=== PATIENT | female | born 1950 | race Caucasian/White ===

== ENCOUNTER 2019-05-06 12:14 | Inpatient (IN) | payer MEDICARE ==
--- NOTE | 2019-05-07 07:32 | Psychiatric Evaluation ---
DATE OF SERVICE: 05/06/2019 INITIAL PSYCHIATRIC EVALUATION AGE: 68. SEX: Female. PHYSICIAN: Dr. Jean-Baptiste. CHIEF COMPLAINT: Hallucinations and crying. HISTORY OF PRESENT ILLNESS: The patient is a 68-year-old female who was admitted to the hospital because of increased paranoia. The patient thinks that her kids are trying to poison her and the patient started to wander away from home and from the family. The patient was placed on hold by law enforcement for grave disability and also for dangers to self. The patient also has been having auditory hallucinations and has been confused and severely paranoid. Also according to the admission report, the patient has dementia, depression and schizophrenia. Chart and interview the patient. The patient is trying hysterically and sitting on the floor and did not answer any of my questions at this time because of her confusion and because of hallucinations. PAST PSYCHIATRIC HISTORY: The patient seems to have history of psychosis and depression and questionable dementia. PAST MEDICAL HISTORY: The patient has type 2 diabetes mellitus. SOCIAL HISTORY: The patient is and her on January of this year according to the admission report. The patient also has children, but it is not clear how many. The patient lives with her family. ALLERGIES: No known allergies. MENTAL STATUS EXAMINATION: The patient appears her stated age. Anxious. Tearful. Did not answer questions because continuously crying. Depressed mood. Unable to assess her thought processes or her suicidality or homicidality at this time because the patient was crying hysterically. Poor insight and judgment at this time because of her hallucinations. She also seems to be actively responding to stimuli. Unable to assess her orientation or memory at this time. ASSESSMENT: PRIMARY DIAGNOSIS: Schizoaffective disorder, depressed episode, severe, with psychotic features. MEDICAL DIAGNOSIS: Type 2 diabetes mellitus. Hypertension. TREATMENT PLAN: We will monitor the patient's behavior and condition closely. We will start individual as well as milieu psychotherapy. We will monitor psychotropic medications. We will start the patient on Abilify and we will follow up. ESTIMATED LENGTH OF STAY: 5-7 days. PATIENT'S STRENGTHS AND WEAKNESSES: The patient's strength is not clear at this time. Weaknesses is her ineffective coping and her psychosis. AFTER DISCHARGE PLAN: The patient will return to live with her family and outpatient treatment and followup, will continue as an outpatient. CRITERIA FOR DISCHARGE: The patient will not be psychotic or suicidal and will stabilize with psychotropic medications and will establish outpatient treatment plans. JOB# [id number]
--- NOTE | 2019-05-08 22:21 | History & Physical ---
ADMIT DATE: 05/08/2019 REASON FOR ADMISSION: Psychiatric disorder. HISTORY OF PRESENT ILLNESS: This is a 68-year-old female admitted to the Geropsych Unit at [facility] for evaluation of underlying psychiatric illnesses and dementia by Dr. Jean-Baptiste. Dr. Jean-Baptiste requested medical H and P on this patient. The patient, during my evaluation, seems confused. The patient's family was sitting beside the patient who helped in providing most of the history. The patient's daughter is, in fact, his insurance special agent. PAST MEDICAL HISTORY: Hypertension, dementia. PAST SURGICAL HISTORY: Gallbladder surgery in the past. FAMILY HISTORY: No significant family history. SOCIAL HISTORY: The patient was currently homeless. No reported alcohol, tobacco or drug use. CURRENT MEDICATIONS: Per medication reconciliation. ALLERGIES: ALLERGIC TO PENICILLIN. REVIEW OF SYSTEMS: No fever, no chills, no diarrhea, no vomiting, no abdominal pain, no chest pain or trouble breathing reported. PHYSICAL EXAMINATION: VITAL SIGNS: Temperature 97.6, pulse 77, respirations 18, blood pressure 167/84, 97% on room air. HEENT: Unremarkable. HEART: S1, S2 normal. LUNGS: Clear to auscultation. ABDOMEN: Soft, nontender. EXTREMITIES: No edema. NEUROLOGIC: The patient is confused. AVAILABLE LABORATORY DATA: None. ASSESSMENT: 1. Hypertension. 2. Dementia. 3. Psych disorder. PLAN: Psych management per psychiatrist. The patient was started on losartan. The patient's blood pressure seems so high, I will increase losartan to 50 twice daily. Monitor blood pressure, low-salt diet. The patient's psych management by psychiatrist. The patient is medically stable. The patient's condition and plan of care discussed with the daughter and nursing staff. JOB# [id number]
--- NOTE | 2019-05-09 12:37 | Progress Notes ---
DATE: 05/08/2019 PSYCHIATRIC PROGRESS NOTE DATE OF SERVICE: 05/08/2019 SUBJECTIVE: Chart was reviewed and the patient interviewed, also discussed the patient's condition with the staff and reviewed records and labs. The patient seems to be exhibiting manic behavior today and she is hyperverbal with pressured speech. The patient also has labile affect. The patient also today speaks Fijian, although not speaking any Fijian upon admission. She is still confused and she is still wandering and easily agitated. Her ADLs seemed to be slightly improved. She is still delusional and paranoid about her children and thinks that her children want to poison her. She has been living in streets because of that. Her judgment is still poor. Otherwise, the patient started to take Abilify with no side effects. ASSESSMENT: The patient is still agitated and is still showing poor self-care and considered to be gravely disabled. TREATMENT PLAN: Continue to monitor her behavior and her condition closely. Also, we will continue Abilify 15 mg every day and adjusting the dose and working on family issues and the relationships. [facility]# [id number]
--- NOTE | 2019-05-09 22:08 | Progress Notes ---
DATE: 05/09/2019 PSYCHIATRIC PROGRESS NOTE DATE OF SERVICE: 05/09/2019. Chart reviewed and the patient interviewed. Also discussed the patient's condition with the staff and reviewed the records and labs. The patient is still exhibiting pressured speech and affect is labile. The patient also is still confused and still wanders around the unit in a confused state and with episodes of agitation. She also is still paranoid about her children and continued to think that her children wanted to poison her. On the other hand, the patient continued to comply with taking her medications and no side effects of medications. ASSESSMENT: The patient is still psychotic and agitated and needs close monitoring. TREATMENT PLAN: Continue to monitor her behavior and condition closely. Also, continue adjusting psychotropic medications and work on behavioral modification. JOB# [id number]
--- NOTE | 2019-05-10 20:52 | Progress Notes ---
DATE: 05/10/2019 PSYCHIATRIC PROGRESS NOTE SUBJECTIVE: Chart reviewed and the patient interviewed. Also discussed the patient's condition with the staff, and reviewed records and labs. The patient continued to be delusional, and she thinks that she is and that medicine will hurt the baby. The patient also in spite of that is still taking the medications and she is compliant with taking her medications. Also during my interview, the patient was speaking Portuguese and at times was mixing her Portuguese with Greek, and also sometimes seemed to be with disorganized thoughts. The patient also is paranoid and fearful to stay in her room, and tries to stay out of the room all the time. She also still has thoughts that the children as well as the staff in the hospital are trying to poison her. On the other hand, the patient is not crying as much and sleeping slightly better. She still has disorganized thoughts with flight of ideas. ASSESSMENT: The patient is still psychotic. TREATMENT PLAN: We will continue Abilify 15 mg every day, but we will add Seroquel in a dose of 100 mg at bedtime. Also, we will continue monitoring her condition and her behavior closely, and we will continue to follow up. [facility]# [id number]
--- NOTE | 2019-05-18 20:34 | Progress Notes ---
DATE: SUBJECTIVE: Chart was reviewed and the patient interviewed. Also discussed the patient's condition with the staff and reviewed records and labs. The patient continued to be anxious and continued to be in restless. The patient also is suspicious and is paranoid. She also is restless and in irritable and angry mood. She also has mood swings. Otherwise, the patient continued to comply with taking her medications with no side effects of medications. The patient still has trouble sleeping at night, has difficulty sleeping all night. ASSESSMENT: The patient is still agitated and is still psychotic. TREATMENT PLAN: We will continue to monitor behavior and condition closely. Also, we will add trazodone in a dose of 50 mg at bedtime. Also, we will increase Seroquel to 150 mg at bedtime and continue to follow up. [facility]# [id number]
--- NOTE | 2019-05-18 20:34 | Progress Notes ---
DATE: 05/14/2019 Case was discussed with staff of the patient, reviewed records. This is a 68-year-old female who was admitted on 05/06/2019 because of increasing paranoia. She thinks that her kids are trying to poison her. The patient started to wander away from home and from family. The patient was placed on hold for grave disability. The patient with a history of psychosis, depression, questionable dementia. The patient continues to have poor insight, continues to be paranoid, unable to make safe plan for self-care. Sometimes she thinks she is and the medication will harm the baby. She has been compliant with the medication with no side effects. She is disorganized, unable to make safe plan for self-care. No side effects with the medication, no sedation, no nausea, no extrapyramidal symptoms. We will continue outpatient group therapy, milieu therapy, adjust medication as needed. JOB# [id number] [facility]
--- NOTE | 2019-05-18 20:34 | Progress Notes ---
DATE: 05/11/2019 SUBJECTIVE: Chart was reviewed and patient was interviewed. Also, discussed the patient's condition with the staff and reviewed records and labs. The patient is still delusional and confused, but slightly calmer. She still thinks that she is . She also is still suspicious and paranoid and still had disorganized thoughts. Otherwise, the patient has continued to take Abilify and Seroquel was added. At the same time, continue to work on her psychosis and agitation and we will continue to follow up closely. JOB# [id number]
--- NOTE | 2019-05-18 20:34 | Progress Notes ---
DATE: 05/13/2019 SUBJECTIVE: Chart was reviewed and the patient interviewed. Also discussed the patient's condition with the staff and reviewed records and labs. The patient continued to have disorganized thoughts and delusions of being . The patient also is still suspicious and is still paranoid. The patient also is still having episodes of being agitated in the middle of other patients for no apparent reason. Also, the patient has difficulty sleeping at night. Otherwise, the patient is compliant with taking her medications and cooperative with staff and able to follow directions in spite of her psychosis. ASSESSMENT: The patient is still psychotic and is still agitated. TREATMENT PLAN: We will continue to monitor her behavior and her condition closely. Also, we are cross titrating Seroquel and Abilify. We will increase Seroquel to 150 mg at bedtime. Also, we will decrease Abilify to 5 mg at bedtime and we will continue to monitor her behavior and her condition closely. Also, we will work on discharge plans and placement issue. JOB# [id number]
--- NOTE | 2019-05-18 20:34 | Progress Notes ---
DATE: SUBJECTIVE: Chart was reviewed and the patient interviewed. Also, discussed the patient's condition with the staff and reviewed records and labs. The patient is still confused and is still disoriented. The patient also is guarded. She also still seems to be preoccupied and delusional, although her affect seems to be slightly brighter. Otherwise, the patient is compliant with taking her medications with no side effects of medications. ASSESSMENT: The patient is still psychotic, but showing some improvement. TREATMENT PLAN: surgical manager informed me that the patient cannot return home. We will try [facility] the [facility]. Also, we will increase Seroquel to 200 mg at bedtime and we will continue to follow up. JOB# [id number]
--- NOTE | 2019-05-18 20:34 | Progress Notes ---
DATE: SUBJECTIVE: Chart was reviewed and the patient interviewed. Also discussed the patient's condition with the staff and reviewed records and labs. The patient is still slightly delusional and paranoid, but today she is not talking much about her being . Also, slightly easier to redirect her. The patient also is interacting slightly more. It seemed that the patient had a visit from her children and that did help her much with her psychosis with her depressed mood. Otherwise, the patient continued to comply with taking her medications with no side effects of medications. ASSESSMENT: The patient is still psychotic and the patient still needs close monitoring. TREATMENT PLAN: We will continue monitoring the patient's behavior and condition closely. Also, we will continue working on her psychosis. Also, we will cross titrate taking her medications and we will discontinue Abilify and continue Seroquel and we will continue to follow up. [facility]# [id number]
--- NOTE | 2019-05-18 20:34 | Diagnostic Imaging Report ---
Left third finger (3 views) HISTORY: Pain, trauma Generalized osteopenia. Soft tissue swelling noted adjacent to the third proximal phalanx. No acute abnormalities. No fractures are seen. Mild narrowing of the DIP and PIP joint spaces. IMPRESSION: 1. No acute bony abnormalities 2. Soft tissue swelling 3. Mild osteoarthritis
--- NOTE | 2019-05-18 20:35 | Progress Notes ---
DATE: 05/17/2019 SUBJECTIVE: The patient was seen and evaluated. The patient's chart was reviewed. Covering for Dr. Jean-Baptiste. Today on cgxf-qi-cody evaluation, the patient reports that she is here because she is not going to get and then she reports she is here because she is going to get surgery. She paces and is easily agitated. MENTAL STATUS EXAMINATION: Delusional statements. ASSESSMENT AND PLAN: The patient continues to pace and is easily agitated because she believes that she is not here to get or get . RECONCILIATION REVIEW: We will continue with the current medications as following: Macrobid, Seroquel 25 mg p.o. b.i.d. and 300 mg at nighttime, which was recently increased in the last 24 hours. JOB# [id number]
--- NOTE | 2019-05-18 22:46 | Progress Notes ---
DATE: 05/18/2019 SUBJECTIVE: The patient was seen and evaluated. The patient's chart reviewed. Nursing staff overnight reported the patient believed she was being poisoned. Today on [id number]-vg-fpvp evaluation, the patient is confused, does not know where she is. She believes that her family is conspiring against her, they want to poison her, and she is ____ for help. ASSESSMENT AND PLAN: This is a 68-year-old female who presents still delusional with poor memory consistent with unspecified dementia. We will augment the current medication regimen with Aricept. JOB# [id number]
--- NOTE | 2019-05-19 21:20 | Progress Notes ---
DATE: 05/19/2019 SUBJECTIVE: The patient in the hospital, mostly withdrawn, keeps to self, demanding to leave, believes that she lives in a hotel, still believing that kids are trying to poison her. Still symptomatic. Ongoing paranoid, rambling. Dr. Rodriguez saw the patient yesterday; she was really confused, believing family was conspiring against her, apparent history of dementia. MEDICATIONS: Reviewed. ASSESSMENT: Ongoing symptoms, safety concerns, delusions. JOB# [id number]
--- NOTE | 2019-05-20 09:42 | Progress Notes ---
DATE: 05/20/2019 SUBJECTIVE: A 68-year-old female admitted to the hospital with increased paranoia, believing her kids are trying to poison her. The patient is still making too much sounds on exam, still paranoid, believing people are after her. She is telling me that she is sleeping better and eating better. The patient is still believing she is here to get and get surgery. The patient mostly keeps to self, withdrawn. Ongoing paranoias. Medications were reviewed. We will consider addition of Namenda, ongoing psychotic symptoms. JOB# [id number]
--- NOTE | 2019-05-21 07:28 | Progress Notes ---
DATE: 05/21/2019 SUBJECTIVE: The patient in the hospital, poorly oriented, still talking about wanting to go to a hotel, still fearful of her family, isolative, withdrawn, always by herself, easily agitated per staff, labile, ongoing disorientation. She really has no idea why she is here, still talks about her family. The patient believing that female staff are trying to steal from her and that they are not feeding her . is apparently . PLAN: We will continue to monitor ongoing psychotic symptoms as noted. We will be increasing dosing of the Seroquel today. JOB# [id number]
[2019-05-21] MEDS: QUEtiapine Fumarate 300 MG, QUEtiapine Fumarate 25 MG PO SCH (20:20)
[2019-05-22] MEDS: QUEtiapine Fumarate 300 MG, QUEtiapine Fumarate 25 MG PO SCH (20:47)
--- NOTE | 2019-05-22 21:07 | Progress Notes ---
DATE: 05/22/2019 SUBJECTIVE: The patient is in the hospital, coming in because of behavioral disturbances; family requesting a security unit. Apparently wandering behaviors, paranoia, fearful of the family. The patient mostly withdrawn, keeps to self. Concerns about her ability to really function at a lower level of care. Still talking about family, paranoid about the family, is scared. PLAN: We will continue inpatient monitoring. Recent dose increase of Seroquel. JOB# [id number]
[2019-05-23] MEDS ORDERED: GLUCAGON HCl 1 MG KIT IM PRN (15:34)
--- NOTE | 2019-05-23 15:36 | Progress Notes ---
DATE: 05/23/2019 SUBJECTIVE: The patient in the hospital, depressed, withdrawn, isolative and mostly keeps to self, concerns about ongoing psychotic symptoms, still talking about family, still confused, unclear where she is going to go when she leaves the hospital. PLAN: We will continue to monitor ongoing paranoias, grave disability. We are trying to find her a safe disposition. [facility]# [id number]
[2019-05-23] MEDS: INSULIN LISPRO SLIDING SCALE 100 UNITS/ML UNIT SUBQ SCH ×2 (18:30→21:08)
[2019-05-23] MEDS: QUEtiapine Fumarate 300 MG, QUEtiapine Fumarate 25 MG PO SCH (20:58)
[2019-05-24] MEDS: INSULIN LISPRO SLIDING SCALE 100 UNITS/ML UNIT SUBQ SCH ×4 (06:43→20:51)
--- NOTE | 2019-05-24 13:49 | Progress Notes ---
DATE: 05/24/2019 SUBJECTIVE: The patient is resting, oriented to 1, not really making much sense, difficult to follow his thought processes. Fair sleep, fair appetite, seems to be calmer on exam, still paranoid, fearful of family, wandering behaviors. We are pending a safe disposition. PLAN: We will continue to monitor, recent dose increases of medications tolerance. JOB# [id number]
[2019-05-24] MEDS: QUEtiapine Fumarate 300 MG, QUEtiapine Fumarate 25 MG PO SCH (20:14)
[2019-05-25] MEDS: INSULIN LISPRO SLIDING SCALE 100 UNITS/ML UNIT SUBQ SCH ×4 (06:35→21:00)
[2019-05-25] MEDS: QUEtiapine Fumarate 300 MG, QUEtiapine Fumarate 25 MG PO SCH (20:40)
--- NOTE | 2019-05-25 22:16 | Progress Notes ---
DATE: 05/25/2019 SUBJECTIVE: The patient was seen, chart reviewed, and discussed with staff. The patient continues to be extremely paranoid, especially with her family. The patient continues to be very disoriented, confused, difficulty answering questions in a meaningful manner. Has however, been compliant with medications, denying any side effects. PLAN: The patient continues to be extremely confused, disoriented, so that she will require inpatient care center facility and treatment. We will monitor the patient on a daily basis for response to medications and titrate medications as needed. JOB# [id number]
[2019-05-26] MEDS: INSULIN LISPRO SLIDING SCALE 100 UNITS/ML UNIT SUBQ SCH ×4 (06:33→20:37)
--- NOTE | 2019-05-26 19:20 | Progress Notes ---
DATE: 05/26/2019 FOLLOWUP PROGRESS NOTE Case was discussed with staff of the patient, reviewed records. The patient continues to be disorganized. Continues to be unpredictable, impulsive, needing redirection. Continues to be paranoid at times, wandering on the unit. No side effects with the medication, no sedation, no nausea, no extrapyramidal symptoms. We will continue to work with the patient in group therapy, milieu therapy, and adjust the medications as needed. JOB# [id number]
[2019-05-26] MEDS: QUEtiapine Fumarate 300 MG, QUEtiapine Fumarate 25 MG PO SCH (20:35)
--- NOTE | 2019-05-26 21:13 | General Progress Note ---
Subjective - Review of Systems Service Date: 05/25/19 Subjective: Late entry: Patient seen and examined chart reviewed high blood sugar and Blood pressure noted Objective - Results Recent Labs: Laboratory Last Values POC Glucose 198 MG/DL (70 - 105) H 05/26/19 19:32 - Physical Exam Vitals and I&O: Vital Signs Temp 97.3 F 05/26/19 20:39 Pulse 60 05/26/19 20:39 Resp 18 05/26/19 20:39 BP 164/75 05/26/19 20:39 Pulse Ox 97 05/26/19 20:39 Intake & Output 05/26/19 05/26/19 05/27/19 06:59 18:59 06:59 Intake Total 240 1000 240 Balance 240 1000 240 Intake: Oral 240 1000 240 Other: # Voids 2 4 2 # Bowel Movements 1 Active Medications: Current Medications Acetaminophen (Tylenol) 650 mg PO Q4H PRN PRN Reason: Mild Pain (Scale 1-3) Stop: 07/06/19 04:26 Acetaminophen (Tylenol) 650 mg PO Q4HR PRN PRN Reason: TEMP ABOVE 101 Stop: 07/06/19 14:34 Acetaminophen (Tylenol) 650 mg PO Q4HR PRN PRN Reason: HEADACHE Stop: 07/06/19 14:35 Last Admin: 05/25/19 04:29 Dose: 650 mg Acetaminophen (Tylenol 650mg Supp) 650 mg RC Q4HR PRN PRN Reason: Headache if not tolerate po Stop: 07/06/19 15:10 Acetaminophen (Tylenol 650mg Supp) 650 mg RC Q4HR PRN PRN Reason: Mild pain 1-3 if nottoleratepo Stop: 07/06/19 15:09 Acetaminophen (Tylenol 650mg Supp) 650 mg RC Q4HR PRN PRN Reason: T above 101 if not tolerate po Stop: 07/06/19 15:12 Donepezil HCl (Aricept) 5 mg PO DAILY [facility] Stop: 07/17/19 08:59 Last Admin: 05/26/19 08:51 Dose: 5 mg Hydrochlorothiazide (Hctz) 25 mg PO DAILY [facility] Stop: 07/25/19 08:59 Last Admin: 05/26/19 08:51 Dose: 25 mg Insulin Human Lispro (Humalog Insulin Sliding Scale) 0 units SUBQ ACHS [facility]; Protocol Stop: 07/22/19 16:29 Last Admin: 05/26/19 20:37 Dose: Not Given Lorazepam (Ativan) 1 mg PO Q6HR PRN; Protocol PRN Reason: Anxiety Stop: 07/06/19 06:48 Last Admin: 05/26/19 20:35 Dose: 1 mg Losartan Potassium (Cozaar) 100 mg PO DAILY [facility] Stop: 07/23/19 08:59 Last Admin: 05/26/19 08:51 Dose: 100 mg Metformin HCl (Glucophage) 500 mg PO BID [facility] Stop: 07/24/19 16:59 Last Admin: 05/26/19 16:26 Dose: 500 mg Metoprolol Tartrate (Lopressor) 25 mg PO BID [facility] Stop: 07/20/19 16:59 Last Admin: 05/26/19 16:26 Dose: 25 mg Quetiapine Fumarate (Seroquel) 25 mg PO BID [facility]; Protocol Stop: 07/15/19 08:59 Last Admin: 05/26/19 16:27 Dose: 25 mg Quetiapine Fumarate 300 mg/ (Quetiapine Fumarate 25 mg) 325 mg PO HS [facility] Stop: 07/20/19 20:59 Last Admin: 05/26/19 20:35 Dose: 325 mg Zolpidem Tartrate (Ambien) 5 mg PO HS PRN PRN Reason: Insomnia Stop: 07/05/19 23:39 Last Admin: 05/26/19 20:35 Dose: 5 mg Cardiovascular: Regular rate Lungs: Clear to auscultation Assessment/Plan - Assessment Assessment: DM II HTN DEMENTIA PSYCH DISORDER - Plan Plan: Metformin added Insulin sliding scale HCTZ PSYCH Follow up Plan of care discussed with nursing staff Nutritional Asmnt/Malnutr-PDOC - Dietary Evaluation Malnutrition Findings (Please click <Entered> for more info): Nutritional Asmnt/Malnutrition Start: 05/09/19 13: 42 Text: Status: Complete Freq: Protocol: Document 05/09/19 13:42 LEONIE (Rec: 05/09/19 13:47 LEONIE [email or web address]) Nutritional Asmnt/Malnutrition Patient General Information Nutritional Screening Moderate Risk Diagnosis Psychosis Pertinent Medical Hx/Surgical Hx HTN, Dementia, Gallbladder surgery Subjective Information Pt is a 68-year-old female admitted on 05/06 d/t psychosis. Pt is eating an estimated 46% of meals since admit date (x2 days) Per Meal/ Nutrition Activity Record. Dietary is currently providing an estimated 1650 kcals and 90 gm Pro, per Pt PO intake this is providing an estimated 759 kcals and 41gm Pro to meet 72% kcal and 100% Pro needs. Anthropometrics HT: 5 FT WT: 165 LB (75 kg) ABW: 116 LB (52.84 kg) BMI: 32.26 (Obese) GI/ Skin Integrity GI: WNL, Soft, Flat, Non- tender BM: 05/09 x1 I/O: 240/Not Noted Skin: WNL, Intact Jeffy: 17 Diet Order: [facility] 45 Estimated Energy Needs: ( Geriatric, ABW) 1438-9271 kcals (20-25 kcals/ kg) 42-53g Pro (0.8-1.0 g/kg) 0672-1558 ml (25-30 ml/kg) Current Diet Order/ Nutrition Support [facility] 45 Pertinent Medications Cozaar Pertinent Labs 05/06: Glucose 178 05/03: K 3.4, Ammonia 43 Nutritional Hx/Data Height 1.52 m Height (Calculated Centimeters) 152.4 Current Weight (lbs) 74.843 kg Weight (Calculated Kilograms) 74.8 Weight (Calculated Grams) 48975.7 [place] Body Weight 100 LB (45.45 kg) % [place] Body Weight 165 Body Mass Index (BMI) 32.2 Weight Status Obese GI Symptoms Last BM 05/09 x1 Skin Integrity/Comment: Skin: WNL, Intact Jeffy: 17 Current %PO Poor (25-49%) Estimated Nutritional Goals BEE in Kcals: Adj wt of IBW Calories/Kcals/Kg 20-25 Kcals Calculated 5190-4741 Protein: Adj wt of IBW Protein g/k.8-1.0 Protein Calculated 42-53 Fluid: ml 3236-1893 ml (25-30 ml/kg) Nutritional Problem 1. Problem Problem Altered nutrition related labs Etiology r/t pathophysiological causes Signs/Symptoms: aeb labs (05/06) Glucose 178 and labs (05/03) K 3.4, Ammonia 43. Malnutrition Related to Morbid Obesity Malnutrition related to morbid obesity No Intervention/Recommendation Comments Continue [facility] 45 diet as tolerated. Expected Outcomes/Goals Expected Outcomes/Goals 1. PO intake to meet 75% of estimated nutritional needs. 2. Monitor PO intake, wt, nutrition related labs to trend WNL, and skin integrity. 3. F/U as moderate risk in 3-5 days, 05/12-05/14
[2019-05-27] MEDS: INSULIN LISPRO SLIDING SCALE 100 UNITS/ML UNIT SUBQ SCH ×4 (06:34→21:55)
[2019-05-27] MEDS: QUEtiapine Fumarate 300 MG, QUEtiapine Fumarate 25 MG PO SCH (20:11)
--- NOTE | 2019-05-27 23:05 | Progress Notes ---
DATE: 05/27/2019 FOLLOWUP PROGRESS NOTE Case was discussed with staff of the patient, reviewed treatment plan. The patient continues to have poor insight, continues to be unable to make safe plan for self-care. Continues to be paranoid at times. No side effects with the medication, no sedation, no nausea, no extrapyramidal symptoms. She is on Aricept 5 mg daily and Seroquel 25 mg twice a day and 325 at bedtime and no side effects, no sedation, no nausea and no extrapyramidal symptoms. We will continue to work with the patient in group therapy, milieu therapy, adjust the medication as needed. JOB# [id number] [facility]
[2019-05-28] MEDS: INSULIN LISPRO SLIDING SCALE 100 UNITS/ML UNIT SUBQ SCH ×4 (06:36→20:53)
[2019-05-28] MEDS: QUEtiapine Fumarate 300 MG, QUEtiapine Fumarate 25 MG PO SCH (20:49)
--- NOTE | 2019-05-28 22:51 | Progress Notes ---
DATE: 05/28/2019 Case was discussed with staff of the patient, reviewed records. The patient continues to stay in her bed, isolating herself. Continues to have poor insight, unable to make safe plan for self-care and getting paranoid at times. She is sleeping better, eating better. No side effects with the medication, no sedation, no nausea, no extrapyramidal symptoms. We will continue outpatient group therapy, milieu therapy, adjust the medication as needed. [facility]# [id number]
[2019-05-29] MEDS: INSULIN LISPRO SLIDING SCALE 100 UNITS/ML UNIT SUBQ SCH ×4 (06:48→20:29)
--- NOTE | 2019-05-29 18:40 | Progress Notes ---
DATE: 05/29/2019 Case was discussed with staff of the patient, reviewed records. The patient continues to be confused, internally preoccupied, stays in bed, isolating herself, unable to participate in meaningful conversation or make safe plan for self-care. She is sleeping well, eating better. No side effects with the medication, no sedation, no nausea, no extrapyramidal symptoms. We will continue outpatient group therapy, milieu therapy, adjust medication as needed. Continues to have episodes of being fearful agitated behavior. JOB# [id number] [facility]
[2019-05-29] MEDS: QUEtiapine Fumarate 300 MG, QUEtiapine Fumarate 25 MG PO SCH (20:34)
[2019-05-30] MEDS: INSULIN LISPRO SLIDING SCALE 100 UNITS/ML UNIT SUBQ SCH ×4 (06:34→20:16)
[2019-05-30] MEDS ORDERED: Haloperidol Lactate 5 mg/mL 1mL Vial IM ONE (13:36)
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
[2019-05-31] MEDS: INSULIN LISPRO SLIDING SCALE 100 UNITS/ML UNIT SUBQ SCH ×4 (06:48→21:51)
--- NOTE | 2019-06-01 01:02 | Progress Notes ---
DATE: 05/31/[address] Jean-Baptiste. SUBJECTIVE: Overnight, the patient required emergent medications after she attempted to AWOL. Today on [id number] evaluation, the patient reports that she is in the hospital, the people trying to poison her. MENTAL STATUS EXAMINATION: Delusional, being poisoned. ASSESSMENT AND PLAN: The patient continues to be psychotic as evident believing that she is being poisoned, but also attempted to AWOL with poor insight. We will continue with the recent increase of Seroquel 25 mg p.o. b.i.d., 400 at nighttime. We will continue with Aricept 5 mg. JOB# [id number]
[2019-06-01] MEDS: INSULIN LISPRO SLIDING SCALE 100 UNITS/ML UNIT SUBQ SCH ×4 (06:59→20:50)
--- NOTE | 2019-06-01 11:55 | Progress Notes ---
DATE: 06/01/[address] Jean-Baptiste. Today on [id number] evaluation, she is concerned that people are trying to harm in the hospital, paces throughout. MENTAL STATUS EXAMINATION: Pacing, delusional, others trying to harm her. ASSESSMENT AND PLAN: History of schizophrenia with dementia who is observed to be distraught by the paranoia and delusions of her being followed and trying to poison her. We will continue with the recent adjustments of the Seroquel to continue to target the patient's ongoing delusions as ____. JOB# [id number]
[2019-06-02] MEDS: INSULIN LISPRO SLIDING SCALE 100 UNITS/ML UNIT SUBQ SCH ×4 (06:58→20:52)
--- NOTE | 2019-06-02 08:21 | Progress Notes ---
DATE: 06/02/2019 SUBJECTIVE: Chart was reviewed and the patient interviewed. Also discussed the patient's condition with the staff and reviewed records and labs. The patient is still rambling in Indonesian words, but at the same time, she is calm and cooperative and seems to be less irritable and less agitated. She also trying to interact slightly more. She is still forgetful and still needs lots of redirections. Otherwise, the patient continued to comply with taking her medications with no side effects of medications. ASSESSMENT: The patient is still psychotic, but seems to be showing some improvement. TREATMENT PLAN: We will continue monitoring her behavior. Also, we will increase Seroquel to 37.5 mg twice a day and 400 mg at bedtime and also will increase Aricept to 10 mg every day. Also, working on discharge plans and placement issue and the patient seems to need some rehabilitation and unable to return back to her home. JOB# [id number]
[2019-06-03] MEDS: INSULIN LISPRO SLIDING SCALE 100 UNITS/ML UNIT SUBQ SCH ×4 (06:37→20:36)
--- NOTE | 2019-06-03 08:18 | General Progress Note ---
Subjective - Review of Systems Service Date: 06/02/19 Subjective: Patient seen and examined chart reviewed Objective - Results Recent Labs: Laboratory Last Values POC Glucose 267 MG/DL (70 - 105) H 06/02/19 20:22 - Physical Exam Vitals and I&O: Vital Signs Temp 98.1 F 06/02/19 20:08 Pulse 64 06/02/19 20:08 Resp 20 06/02/19 20:08 BP 124/70 06/02/19 20:08 Pulse Ox 98 06/02/19 20:08 Intake & Output 06/02/19 06/02/19 06/03/19 06:59 18:59 06:59 Intake Total 240 800 240 Balance 240 800 240 Intake: Oral 240 800 240 Other: # Voids 2 1 Active Medications: Current Medications Acetaminophen (Tylenol) 650 mg PO Q4H PRN PRN Reason: Mild Pain (Scale 1-3) Stop: 07/06/19 04:26 Last Admin: 05/29/19 00:28 Dose: 650 mg Acetaminophen (Tylenol) 650 mg PO Q4HR PRN PRN Reason: TEMP ABOVE 101 Stop: 07/06/19 14:34 Acetaminophen (Tylenol) 650 mg PO Q4HR PRN PRN Reason: HEADACHE Stop: 07/06/19 14:35 Last Admin: 05/25/19 04:29 Dose: 650 mg Acetaminophen (Tylenol 650mg Supp) 650 mg RC Q4HR PRN PRN Reason: Headache if not tolerate po Stop: 07/06/19 15:10 Acetaminophen (Tylenol 650mg Supp) 650 mg RC Q4HR PRN PRN Reason: Mild pain 1-3 if nottoleratepo Stop: 07/06/19 15:09 Acetaminophen (Tylenol 650mg Supp) 650 mg RC Q4HR PRN PRN Reason: T above 101 if not tolerate po Stop: 07/06/19 15:12 Donepezil HCl (Aricept) 10 mg PO DAILY [facility] Stop: 08/01/19 08:59 Last Admin: 06/02/19 11:12 Dose: 10 mg Hydrochlorothiazide (Hctz) 25 mg PO DAILY [facility] Stop: 07/25/19 08:59 Last Admin: 06/02/19 08:30 Dose: Not Given Insulin Human Lispro (Humalog Insulin Sliding Scale) 0 units SUBQ ACHS [facility]; Protocol Stop: 07/22/19 16:29 Last Admin: 06/02/19 20:52 Dose: Not Given Lorazepam (Ativan) 1 mg PO Q6HR PRN; Protocol PRN Reason: Anxiety Stop: 07/06/19 06:48 Last Admin: 06/02/19 20:19 Dose: 1 mg Losartan Potassium (Cozaar) 100 mg PO DAILY [facility] Stop: 07/23/19 08:59 Last Admin: 06/02/19 08:31 Dose: Not Given Metformin HCl (Glucophage) 500 mg PO BID [facility] Stop: 07/24/19 16:59 Last Admin: 06/02/19 17:30 Dose: 500 mg Metoprolol Tartrate (Lopressor) 25 mg PO BID [facility] Stop: 07/20/19 16:59 Last Admin: 06/02/19 17:29 Dose: 25 mg Quetiapine Fumarate (Seroquel) 400 mg PO HS [facility] Stop: 07/29/19 20:59 Last Admin: 06/02/19 20:18 Dose: 400 mg Quetiapine Fumarate (Seroquel) 37.5 mg PO BID [facility]; Protocol Stop: 08/01/19 08:59 Last Admin: 06/02/19 17:30 Dose: 37.5 mg Trazodone HCl (Desyrel) 50 mg PO HS [facility]; Protocol Stop: 07/29/19 20:59 Last Admin: 06/02/19 20:19 Dose: 50 mg Zolpidem Tartrate (Ambien) 5 mg PO HS PRN PRN Reason: Insomnia Stop: 07/05/19 23:39 Last Admin: 05/29/19 20:34 Dose: 5 mg Lungs: Clear to auscultation Assessment/Plan - Assessment Assessment: DM II HTN DEMENTIA PSYCH DISORDER - Plan Plan: Continue Metformin Insulin sliding scale HCTZ PSYCH Follow up Plan of care discussed with nursing staff Nutritional Asmnt/Malnutr-PDOC - Dietary Evaluation Malnutrition Findings (Please click <Entered> for more info): Nutritional Asmnt/Malnutrition Start: 05/09/19 13: 42 Text: Status: Complete Freq: Protocol: Document 05/09/19 13:42 LEONIE (Rec: 05/09/19 13:47 LEONIE [email or web address]) Nutritional Asmnt/Malnutrition Patient General Information Nutritional Screening Moderate Risk Diagnosis Psychosis Pertinent Medical Hx/Surgical Hx HTN, Dementia, Gallbladder surgery Subjective Information Pt is a 68-year-old female admitted on 05/06 d/t psychosis. Pt is eating an estimated 46% of meals since admit date (x2 days) Per Meal/ Nutrition Activity Record. Dietary is currently providing an estimated 1650 kcals and 90 gm Pro, per Pt PO intake this is providing an estimated 759 kcals and 41gm Pro to meet 72% kcal and 100% Pro needs. Anthropometrics HT: 5 FT WT: 165 LB (75 kg) ABW: 116 LB (52.84 kg) BMI: 32.26 (Obese) GI/ Skin Integrity GI: WNL, Soft, Flat, Non- tender BM: 05/09 x1 I/O: 240/Not Noted Skin: WNL, Intact Jeffy: 17 Diet Order: [facility] 45 Estimated Energy Needs: ( Geriatric, ABW) 9397-2574 kcals (20-25 kcals/ kg) 42-53g Pro (0.8-1.0 g/kg) 4781-8409 ml (25-30 ml/kg) Current Diet Order/ Nutrition Support [facility] 45 Pertinent Medications Cozaar Pertinent Labs 05/06: Glucose 178 05/03: K 3.4, Ammonia 43 Nutritional Hx/Data Height 1.52 m Height (Calculated Centimeters) 152.4 Current Weight (lbs) 74.843 kg Weight (Calculated Kilograms) 74.8 Weight (Calculated Grams) 35817.7 [place] Body Weight 100 LB (45.45 kg) % [place] Body Weight 165 Body Mass Index (BMI) 32.2 Weight Status Obese GI Symptoms Last BM 05/09 x1 Skin Integrity/Comment: Skin: WNL, Intact Jeffy: 17 Current %PO Poor (25-49%) Estimated Nutritional Goals BEE in Kcals: Adj wt of IBW Calories/Kcals/Kg 20-25 Kcals Calculated 1707-2026 Protein: Adj wt of IBW Protein g/k.8-1.0 Protein Calculated 42-53 Fluid: ml 7427-0106 ml (25-30 ml/kg) Nutritional Problem 1. Problem Problem Altered nutrition related labs Etiology r/t pathophysiological causes Signs/Symptoms: aeb labs (05/06) Glucose 178 and labs (05/03) K 3.4, Ammonia 43. Malnutrition Related to Morbid Obesity Malnutrition related to morbid obesity No Intervention/Recommendation Comments Continue [facility] 45gm diet as tolerated. Expected Outcomes/Goals Expected Outcomes/Goals 1. PO intake to meet 75% of estimated nutritional needs. 2. Monitor PO intake, wt, nutrition related labs to trend WNL, and skin integrity. 3. F/U as moderate risk in 3-5 days, 05/12-05/14
--- NOTE | 2019-06-03 21:56 | Progress Notes ---
DATE: SUBJECTIVE: Chart was reviewed and the patient interviewed. Also discussed the patient's condition with the staff and reviewed records and labs. The patient seems to be slightly calmer, but she is still easily irritable and easily agitated and she is still paranoid. The patient also is still fearful of her roommate and she is sleeping in the Journey chair in the hallway because of afraid to sleep in her room and thinking that her roommate will attack her. She also is still anxious and nervous and have mood swings. Otherwise, the patient is compliance taking her medications with no side effects of medications. ASSESSMENT: The patient is still agitated and is still in irritable mood and also has no place to live. TREATMENT PLAN: Continue to monitor behavior and condition closely. Also, increase Seroquel to 50 mg twice a day and 800 mg at bedtime and we will continue to follow up. Also, working on placement issue. JOB# [id number]
[2019-06-04] MEDS: INSULIN LISPRO SLIDING SCALE 100 UNITS/ML UNIT SUBQ SCH ×4 (06:55→20:50)
--- NOTE | 2019-06-04 21:33 | Progress Notes ---
DATE: 06/04/2019 SUBJECTIVE: Chart was reviewed and the patient interviewed. Also discussed the patient's condition with the staff and reviewed records and labs. The patient's affect is brighter. The patient seems to be less irritable and less agitated. Also, seems to be less suspicious and less paranoid. She is also interacting more with peers and with others. The patient also seems to be less impulsive, but she is still having episodes of impulsivity, especially her desire to leave the hospital. On the other hand, the patient is sleeping better at night and compliant with taking her medications. ASSESSMENT: The patient is still psychotic, but showing improvement and no behavioral issues. TREATMENT PLAN: Continue Seroquel, but adjust the dose to 50 mg twice a day and 400 mg at bedtime. Also, the patient needs placement and we discussed with the staff placement issue and discharge plans because the patient cannot return to her family. [facility]# [id number]
[2019-06-05] MEDS: INSULIN LISPRO SLIDING SCALE 100 UNITS/ML UNIT SUBQ SCH ×4 (06:35→21:09)
--- NOTE | 2019-06-05 22:14 | Progress Notes ---
DATE: 06/05/2019 SUBJECTIVE: Chart was reviewed and the patient interviewed. Also discussed the patient's condition with the staff and reviewed records and labs. The patient is still depressed and anxious, but seems to be much calmer than before. The patient also is easy to follow directions. She also interacting more with peers and others. She also is still asking about discharge home, but at the same time, family would not take her back and no safe plan for her discharge yet. The patient continued to comply with taking her medications with no side effects of Seroquel or trazodone. The patient is sleeping better at night with the trazodone. ASSESSMENT: The patient is less irritable and less psychotic. TREATMENT PLAN: Continue current treatment and medications. Also, continue to work with community case manager in regard to discharge plans and placement issue and continue to follow up. JOB# [id number]
[2019-06-06] MEDS: INSULIN LISPRO SLIDING SCALE 100 UNITS/ML UNIT SUBQ SCH ×2 (07:05→11:30)
--- NOTE | 2019-06-08 15:59 | Discharge Summary ---
DATE OF DISCHARGE: 06/06/2019 AGE: 69. SEX: Female. PHYSICIAN: Dr. Jean-Baptiste. FINAL AND PRIMARY DIAGNOSIS: Schizoaffective disorder, depressed episode, severe, with psychotic features. MEDICAL DIAGNOSES: 1. Diabetes mellitus, type 2. 2. Hypertension. REASON FOR HOSPITALIZATION: The patient was admitted to the hospital because of increased paranoia and also the patient was thinking that her children were trying to poison her and they tried to get rid of her and kill her. HOSPITAL COURSE: The patient continued to be severely psychotic and agitated. The patient also was depressed. The patient was having episodes of yelling and screaming constantly and she needed lots of redirections. The patient also at certain time required p.r.n. medications. The patient also was forgetful and she was not able to provide any safe plan for self-care. The patient was started on Seroquel and Seroquel dose was adjusted to 50 mg twice a day and 400 mg at bedtime. Also, because of her forgetfulness, the patient was given Aricept in a dose of 10 mg every day. The patient also was having difficulty with her sleep and was given trazodone in a dose of 50 mg at bedtime. The patient was having mood swings and sometimes calm and sometimes aggressive and agitated. Later on, the patient was calm. Family said that they are unable to take care of the patient. Placement was an issue. The patient was discharged from the hospital and was accepted to [facility]. The patient has hypertension and type 2 diabetes mellitus. No major medical problems while in the hospital. AFTER DISCHARGE PLANS: The patient discharged from the hospital and went to [facility] with plans for follow her up there. EXPECTED OUTCOME AFTER DISCHARGE: Fair if the patient continues with her treatment and take her medications. JOB# [id number]
--- NOTE | 2019-06-09 03:45 | Progress Notes ---
DATE: 06/06/2019 SUBJECTIVE: Chart was reviewed and the patient interviewed. Also discussed the patient's condition with the staff and reviewed records and labs. The patient seems to be calm and cooperative, less agitated and less psychotic. The patient also is compliant with taking her medications with no side effects of medications. According to watch caser notes, the patient accepted to [facility]. ASSESSMENT: The patient is not psychotic or agitated. TREATMENT PLAN: Planning to discharge the patient today to [facility] and follow up there. JOB# [id number]
== END 2019-06-06 16:00 | DRG 885 ==
LOC: GERO 21:30
PROVIDERS: ADMIT Psychiatry & Neurology Psychiatry; ATTEND Psychiatry & Neurology Psychiatry
DX: F25.1 Schizoaffective disorder, depressive type (principal); F03.90 Unspecified dementia, unspecified severity, without behavioral disturbance, psychotic disturbance, mood disturbance, and anxiety; I10 Essential (primary) hypertension; E11.9 Type 2 diabetes mellitus without complications; F29 Unspecified psychosis not due to a substance or known physiological condition
CPT/HCPCS: 73140-TC-F2; 82948-90; 83036-90; G0410; J1200; J1630; J2060; Z7610